=== PATIENT | female | born 1930 | race African-American/Black ===

== ENCOUNTER → 2017-05-16 | Outpatient (CLI) | payer MEDICARE, OTHER ==
[2016-05-16 11:40] VITALS: BP 151/83
[~2017-05-16] MED LIST: AMLO10TA2 PO; FLUT16SP INH; FLUT1DIS3 INH; IBUP800T19 PO; LEVO250T25 PO; LISI40TA PO; METO-239 PO; METO-247 PO; PRAV20TA2 PO; PROAIR HFA8.5 GM INH
--- NOTE | 2017-05-16 15:26 | RAD ---
APPROVED REPORT Test Type: Exercise Stress Nurse/Tech: Estela Gurrola R.N. Test Indications: DYSPNEA W/EXERTION Cardiac History: HTN Medications: See Electronic Medical Record Medical History: See Electronic Medical Record Resting ECG: SR/ST Resting Heart Rate: 100 bpm Resting Blood Pressure: 142/60mmHg Pretest Chest Pain: No chest pain Nurse/Tech Notes S1S2, LUNGS CTA Stress Symptoms Dyspnea,Fatigue POST EXERCISE Reason for Termination: Reached target heart rate Target HR: Yes Max HR: 140 bpm 104% of Maximum Predicted HR: 134 bpm Exercise duration: 3:04 min:sec, 2 Stage Exercise capacity: 6.1METs Max Blood Pressure: 173/60mmHg Blood Pressure response to exercise: Normal blood pressure response during stress. Heart Rate response to exercise: WNL Chest Pain: No. Arrhythmia: No. INTERPRETATION Stress EKG Conclusion: The resting EKG shows a sinus rhythm with nonspecific ST-T wave changes. The stress EKG shows mild further ST segment changes in the baseline abnormal leads which is not diag nostic of ischemia. Conclusion. Reasonably good exercise tolerance with an 86-year-old female walking for 3 minutes and 4 seconds. No reported chest pain with exertion. Mildly abnormal baseline EKG with further mild ST segment changes with exertion that are not diagnost ic of ischemia. Moderate to moderately low risk test. More precision could be obtained with nuclear imaging if indicated.
== END | disposition home or self-care (01) ==
LOC: NM 13:12
PROVIDERS: ATTEND Physician Assistant
DX: R06.09 Other forms of dyspnea (principal); I10 Essential (primary) hypertension; E78.00 Pure hypercholesterolemia, unspecified; Z87.891 Personal history of nicotine dependence
CPT/HCPCS: 93017

== ENCOUNTER → 2017-12-10 | Outpatient (CLI) | payer MEDICARE, OTHER ==
[2017-12-10] MEDS: REGADENOSON 0.4 MG/5 ML DISP.SYRIN. IV (10:31)
== END | disposition home or self-care (01) ==
LOC: ECHO 08:46
DX: I11.9 Hypertensive heart disease without heart failure (principal); I36.1 Nonrheumatic tricuspid (valve) insufficiency; J44.9 Chronic obstructive pulmonary disease, unspecified; E78.00 Pure hypercholesterolemia, unspecified; Z87.891 Personal history of nicotine dependence
CPT/HCPCS: 76770; 78452; 93017; 93306; 96374; 96375; 96376; A9500; J2785

== ENCOUNTER 2019-11-18 13:42 | Emergency (ER) | payer MEDICARE, OTHER ==
[~2019-11-18] VITALS: Ht 160 cm; Wt 83.2 kg
[~2019-11-18 13:42] MED LIST changes: +ALBU2.5V8 INH; -AMLO10TA2 PO; +AMLO10TA8 PO; +LISI-130 PO; -LISI40TA PO; -PROAIR HFA8.5 GM INH
--- NOTE | 2019-11-18 14:18 | EKG ---
[facility] [address] [place] [address] Test Date: 2019-11-18 Test Time: 14:09:01 Pat Name: JESSENIA ANDERSON Department: Room: Gender: F Marzipan Maker: : 1930 Requested By: JOSUE PARRA Order Number: [id number] Reading MD: Cristino Nelson Measurements Intervals [place] Rate: 90 P: -125 WV: 64 QRS: 36 QRSD: 88 T: 59 QT: 374 QTc: 462 Interpretive Statements SINUS RHYTHM T ABNORMALITY IN HIGH LATERAL LEADS ABNORMAL ECG Electronically Signed On 11-19-2019 8:05:18 CDT by Cristino Nelson
[2019-11-18 14:34] LABS: BASO # 0.1 x10^3/uL (0.0-0.2); BASO % 1 % (0-3); EOS # 0.3 x10^3/uL (0.0-0.7); EOS % 3 % (0-3); HEMATOCRIT 38.1 % (36.0-47.0); HEMOGLOBIN 12.5 g/dL (12.0-15.5); LYMPH # 1.9 x10^3/uL (1.0-4.8); LYMPH % 21 % (24-48); MEAN CORPUSCULAR HEMOGLOBIN 27 pg (25-35); MEAN CORPUSCULAR HGB CONC 33 g/dL (31-37); MEAN CORPUSCULAR VOLUME 83 fL (79-100); MONO # 1.3 x10^3/uL (0.0-1.1); MONO % 15 % (0-9); NEUT # 5.3 x10^3/uL (1.8-7.7); NEUT % 60 % (31-73); PLATELET COUNT 391 x10^3/uL (140-400); RED BLOOD COUNT 4.59 x10^6/uL (3.50-5.40); RED CELL DISTRIBUTION WIDTH 13.6 % (11.5-14.5); WHITE BLOOD COUNT 8.8 x10^3/uL (4.0-11.0)
[2019-11-18 14:42] LABS: CALCIUM 9.3 mg/dL (8.5-10.1); CREATININE 1.4 mg/dL (0.6-1.0); GFR 42.8; POTASSIUM 4.6 mmol/L (3.5-5.1)
[2019-11-18 14:44] LABS: PROTHROMBIN TIME PATIENT 13.3 SEC (11.7-14.0)
[2019-11-18 14:48] LABS: ALBUMIN 2.9 g/dL (3.4-5.0); ALBUMIN/GLOBULIN RATIO 0.7 (1.0-1.7); MAGNESIUM 2.2 mg/dL (1.8-2.4); TOTAL BILIRUBIN 0.7 mg/dL (0.2-1.0); TOTAL PROTEIN 7.2 g/dL (6.4-8.2)
[2019-11-18 14:51] LABS: INFLUENZA A PATIENT NEGATIVE (NEGATIVE); INFLUENZA B PATIENT NEGATIVE (NEGATIVE)
--- NOTE | 2019-11-18 15:37 | RAD ---
PORTABLE CHEST 1V Clinical indications: Shortness of breath. Altered level of consciousness. May 14, 2016. Findings: Bilateral perihilar interstitial pulmonary edema or bronchitis is seen. Cephalization of pulmonary flow is seen. No lung consolidation or pleural effusion or pneumothorax is evident. Heart size is mildly prominent but stable. Mediastinum is unchanged. IMPRESSION: Mild bilateral perihilar interstitial pulmonary edema or bronchitis. Cephalization of pulmonary flow which may be seen with CHF. Electronically signed by: Tyrone Cross MD (11/18/2019 3:34 PM) [id number]
--- NOTE | 2019-11-18 15:41 | RAD ---
STUDY: CT head without contrast INDICATION: Altered level of consciousness. COMPARISON: None. TECHNIQUE: Axial CT imaging through the head without the use of intravenous contrast. Sagittal and coronal reformats were obtained. One or more of the following individualized dose reduction techniques were utilized for this examination: 1. Automated exposure control 2. Adjustment of the mA and/or kV according to patient size 3. Use of iterative reconstruction technique. FINDINGS: No acute intracranial hemorrhage. No mass effect, midline shift or hydrocephalus. No CT evidence for an acute cortical infarction. Parenchymal volume loss with ex vacuo ventricular prominence. Intracranial atherosclerotic calcifications. Patchy bihemispheric subcortical/periventricular white matter low-attenuation. No acute abnormality seen to involve the orbits or scalp. Intact calvarium. IMPRESSION: 1. No acute intracranial abnormality by CT. 2. Senescent changes and white matter findings that are nonspecific but most commonly seen in the setting of chronic microvascular ischemic change. Electronically signed by: ALISIA GARCIA MD (11/18/2019 3:38 PM) [id number]
--- NOTE | 2019-11-18 16:03 | PHYS DOC ---
Past Medical History Past Medical History: COPD, High Cholesterol, Hypertension Past Surgical History: No Surgical History Smoking Status: Former Smoker Alcohol Use: None Drug Use: None General Adult EDM: Chief Complaint: SHORTNESS OF BREATH HPI: HPI: Patient is a 89 year old female with history of hypertension, dyslipidemia, COPD who presents with complaining of shortness of breath and not feeling good. Patient states that for the last 3 days she did not feel good and today had shortness of breath. Patient denies fever and chills, cough and congestion, sick contacts, recent traveling, chest pain, new focal neuro deficit. Patient son stated that she did not feel good today. Patient had O2 sat of more than 95% at room air at arrival to ER and was afebrile Review of Systems: Review of Systems: Constitutional: Denies fever or chills. [] Eyes: Denies change in visual acuity. [] HENT: Denies nasal congestion or sore throat. [] Respiratory: Reports cough and shortness of breath Cardiovascular: Denies chest pain or edema. [] GI: Denies abdominal pain, nausea, vomiting, bloody stools or diarrhea. [] : Denies dysuria. [] Musculoskeletal: Denies back pain or joint pain. [] Integument: Denies rash. [] Neurologic: Denies headache, focal weakness or sensory changes. [] Endocrine: Denies polyuria or polydipsia. [] Lymphatic: Denies swollen glands. [] Psychiatric: Denies depression or anxiety. [] Heart Score: Risk Factors: Risk Factors: DM, Current or recent (<one month) smoker, HTN, HLP, family history of CAD, obesity. Risk Scores: Score 0 - 3: 2.5% MACE over next 6 weeks - Discharge Home Score 4 - 6: 20.3% MACE over next 6 weeks - Admit for Clinical Observation Score 7 - 10: 72.7% MACE over next 6 weeks - Early Invasive Strategies Allergies: Allergies: Allergies Coded Allergies Type Severity Reaction Last Updated Verified No Known Drug Allergies 05/14/16 No Physical Exam: PE: Constitutional: Well developed, well nourished, mild distress, non-toxic appearance. [] HENT: Normocephalic, atraumatic. Eyes: PERRLA, EOMI, conjunctiva normal, no discharge. [] Neck: Normal range of motion, no tenderness, supple, no stridor. [] Cardiovascular:Heart rate regular rhythm, no murmur [] Lungs & Thorax: Bilateral breath sounds clear to auscultation [] Abdomen: Bowel sounds normal, soft, no tenderness, no masses, no pulsatile masses. [] Skin: Warm, dry, no erythema, no rash. [] Back: No tenderness, no CVA tenderness. [] Extremities: No tenderness, no cyanosis, no clubbing, ROM intact, no edema. [] Neurologic: Alert and oriented X 3, no focal deficits noted. [] Psychologic: Affect normal, judgement normal, mood normal. [] Current Patient Data: Labs: Laboratory Tests Test 11/18/19 14:15 11/18/19 14:18 White Blood Count 8.8 x10^3/uL (4.0-11.0) Red Blood Count 4.59 x10^6/uL (3.50-5.40) Hemoglobin 12.5 g/dL (12.0-15.5) Hematocrit 38.1 % (36.0-47.0) Mean Corpuscular Volume 83 fL (79-100) Mean Corpuscular Hemoglobin 27 pg (25-35) Mean Corpuscular Hemoglobin Concent 33 g/dL (31-37) Red Cell Distribution Width 13.6 % (11.5-14.5) Platelet Count 391 x10^3/uL (140-400) Neutrophils (%) (Auto) 60 % (31-73) Lymphocytes (%) (Auto) 21 % (24-48) L Monocytes (%) (Auto) 15 % (0-9) H Eosinophils (%) (Auto) 3 % (0-3) Basophils (%) (Auto) 1 % (0-3) Neutrophils # (Auto) 5.3 x10^3/uL (1.8-7.7) Lymphocytes # (Auto) 1.9 x10^3/uL (1.0-4.8) Monocytes # (Auto) 1.3 x10^3/uL (0.0-1.1) H Eosinophils # (Auto) 0.3 x10^3/uL (0.0-0.7) Basophils # (Auto) 0.1 x10^3/uL (0.0-0.2) Prothrombin Time 13.3 SEC (11.7-14.0) Prothrombin Time INR 1.1 (0.8-1.1) Sodium Level 141 mmol/L (136-145) Potassium Level 4.6 mmol/L (3.5-5.1) Chloride Level 106 mmol/L (98-107) Carbon Dioxide Level 20 mmol/L (21-32) L Anion Gap 15 (6-14) H Blood Urea Nitrogen 42 mg/dL (7-20) H Creatinine 1.4 mg/dL (0.6-1.0) H Estimated GFR (Cockcroft-Gault) 42.8 BUN/Creatinine Ratio 30 (6-20) H Glucose Level 86 mg/dL (70-99) Lactic Acid Level 1.1 mmol/L (0.4-2.0) Calcium Level 9.3 mg/dL (8.5-10.1) Magnesium Level 2.2 mg/dL (1.8-2.4) Total Bilirubin 0.7 mg/dL (0.2-1.0) Aspartate Amino Transferase (AST) 22 U/L (15-37) Alanine Aminotransferase (ALT) 21 U/L (14-59) Alkaline Phosphatase 107 U/L (46-116) Creatine Kinase 105 U/L (26-192) Troponin I Quantitative < 0.017 ng/mL (0.000-0.055) XU-Ypi-G-Type Natriuretic Peptide 336 pg/mL (0-449) Total Protein 7.2 g/dL (6.4-8.2) Albumin 2.9 g/dL (3.4-5.0) L Albumin/Globulin Ratio 0.7 (1.0-1.7) L Influenza Type A Antigen Negative (NEGATIVE) Influenza Type B Antigen Negative (NEGATIVE) Laboratory Tests 11/18/19 14:15 Laboratory Tests 11/18/19 14:15 Vital Signs: Vital Signs Date Time Temp Pulse Resp B/P (MAP) Pulse Ox O2 Delivery O2 Flow Rate FiO2 11/18/19 13:55 99.2 90 20 170/76 (107) 94 Room Air 99.2 EKG: EKG: EKG interpreted by me. EKG at 1409 showed sinus rhythm at rate of 90 with multiple artifact without acute ST and T wave elevation. Radiology/Procedures: Radiology/Procedures: [facility] [address] [place] [address] IMAGING REPORT Signed PATIENT: JESSENIA ANDERSON ACCOUNT: [id number] : 1930 LOCATION: ER AGE: 89 SEX: F EXAM STATUS: PRE ER ORD. PHYSICIAN: JOSUE PARRA MD REASON: Shortness of breath, altered level of consciousness PROCEDURE: PORTABLE CHEST 1V PORTABLE CHEST 1V Clinical indications: Shortness of breath. Altered level of consciousness. May 14, 2016. Findings: Bilateral perihilar interstitial pulmonary edema or bronchitis is seen. Cephalization of pulmonary flow is seen. No lung consolidation or pleural effusion or pneumothorax is evident. Heart size is mildly prominent but stable. Mediastinum is unchanged. IMPRESSION: Mild bilateral perihilar interstitial pulmonary edema or bronchitis. Cephalization of pulmonary flow which may be seen with CHF. Electronically signed by: Zeus Cross MD (11/18/2019 3:34 PM) [id number] DICTATED and SIGNED BY: ZEUS CROSS MD DATE: 11/18/19 1534 [facility] [address] [place] [address] IMAGING REPORT Signed PATIENT: JESSENIA ANDERSON ACCOUNT: [id number] : 1930 LOCATION: ER AGE: 89 SEX: F EXAM STATUS: PRE ER ORD. PHYSICIAN: JOSUE PARRA MD REASON: ALOC PROCEDURE: CT HEAD WO CONTRAST STUDY: CT head without contrast INDICATION: Altered level of consciousness. COMPARISON: None. TECHNIQUE: Axial CT imaging through the head without the use of intravenous contrast. Sagittal and coronal reformats were obtained. One or more of the following individualized dose reduction techniques were utilized for this examination: 1. Automated exposure control 2. Adjustment of the mA and/or kV according to patient size 3. Use of iterative reconstruction technique. FINDINGS: No acute intracranial hemorrhage. No mass effect, midline shift or hydrocephalus. No CT evidence for an acute cortical infarction. Parenchymal volume loss with ex vacuo ventricular prominence. Intracranial atherosclerotic calcifications. Patchy bihemispheric subcortical/periventricular white matter low-attenuation. No acute abnormality seen to involve the orbits or scalp. Intact calvarium. IMPRESSION: 1. No acute intracranial abnormality by CT. 2. Senescent changes and white matter findings that are nonspecific but most commonly seen in the setting of chronic microvascular ischemic change. Electronically signed by: ALISIA GARCIA MD (11/18/2019 3:38 PM) [id number] DICTATED and SIGNED BY: ALISIA GARCIA MD DATE: 11/18/19 1538 Course & Med Decision Making: Course & Med Decision Making Pertinent Labs and Imaging studies reviewed. (See chart for details) Additional patient nurse with 89-year-old female patient who did not feel good for the last few days and complaining of shortness of breath today. Patient did not have fever and chills, hypotension, leukocytosis, tachycardia. X-ray showed questionable viral pneumonia. Patient is suspected for COVID 19 infection. Patient is a stable to discharge home at this time. Patient was advised to follow-up with outpatient test for rodriguez infection. I've spoken with the patient and/or caregivers. I've explained the patient's condition, diagnosis and treatment plan based on information available to me at this time. I've answered the patient's and/or caregivers questions and addressed any concerns. The patient and/or caregivers have a good understanding the patient's diagnosis, condition and treatment plan as can be expected at this point. Vital signs have been stabilized. The patient's condition is stable for discharge from the emergency department. The patient will pursue further outpatient evaluation with her primary care provider or other designated consulting physician as outlined in the discharge instructions. Patient and/or caregivers are agreeable to this plan of care and follow-up instructions have been explained in detail. The patient and/or caregivers have received these instructions in written format and expressed understanding of these discharge instructions. The patient and her caregivers are aware that if any significant change in condition or worsening of symptoms should prompt him to immediately return to this of the closest emergency department. If an emergent department is not readily available I would encourage him to call 911. Anjum Disclaimer: Anjum Disclaimer: This electronic medical record was generated, in whole or in part, using a voice recognition dictation system. Departure Departure Impression: Primary Impression: Viral respiratory illness Additional Impression: Suspected 2019 novel coronavirus infection Disposition: HOME, SELF-CARE (At 16 5) Condition: STABLE Referrals: DESIRE KNUTSON MD (PCP) Patient Instructions: Viral Infections Additional Instructions: You have a viral syndrome which may include symptoms like muscle aches, fevers, chills, runny nose, cough, sneezing, sore throat, nausea, vomiting, or diarrhea. One of the potential viruses that you may have is SARS-CoV-2, the virus that causes COVID-19, also known as the Coronavirus. You are just as likely to have a different viral infection such as the common cold, flu, etc. Most patients with the Coronavirus have mild symptoms and recover on their own. Resting, staying hydrated, and sleep based on known cases can be helpful. As of todays visit, you are well enough to go home and treat your symptoms with oral fluids and over the counter medications. Coronavirus testing is not performed on most people with mild symptoms who are being discharged from the emergency department. If Coronavirus testing was performed today the results will not be available for possibly up to 3-4 days. If your result is positive you will be contacted. Please follow the following precautions at home: 1) Stay home except to get medical care. 2) As advised by the CDC, we recommend that you stay in your home and minimize contact with other people. We do not want you to spread the infection. 3) Those who are older or have significant medical issues may have more severe symptoms from this infection. We recommend self-isolation FOR AT LEAST 7 DAYS after your 1st day of symptoms. AFTER you feel better please wait AT LEAST ANOTH ER WEEK before returning to regular activities and being around other people. 4) IF you become sicker and have difficulty breathing, chest pain, are unable to eat/drink, severe vomiting, diarrhea, or weakness you may need to return to the Emergency Department. 5) You should restrict activities outside of your home, except for getting medical care. DO NOT go to work, school, or public areas. Avoid using public transportation, ride sharing, or taxis. 6) Separate yourself from other people in your home. You should use a separate bathroom if possible. 7) Avoid sharing personal household items such as dishes, cups, eating utensils, towels, etc. 8) Clean all high touch surfaces every day (door knobs, counter tops, etc). Use a household cleaning spray or wipe per label instructions. 9) Clean your hands often. Wash your hands with soap and water for at least 20 seconds. 10) Cover your mouth and nose when you cough or sneeze. 11) Throw used tissues in the trash and immediately wash your hands. For additional resources please visit the CDC website or the [place] [facility] ([phone]), you may also call 311 for further information. Thank you for visiting [facility] We appreciate you trusting us with your care. If any additional problems come up don't hesitate to return to visit us. Please follow up with your primary care provider so they can plan additional care if needed and know about the problem that you had. If symptoms worsen come back to the Emergency Department. Any concerning symptoms that start such as chest pain, shortness of air, weakness or numbness on one side of the body, running high fevers or any other concerning symptoms return to the ER. Scripts [COVID 19 test] No Conflict Check Prov: JOSUE PARRA MD 11/18/19 Critical Care Time Critical care time was 60 minutes exclusive of procedures. COVID-19 Assessment: COVID-19 Patient Risks: Age 65 or older: Yes Sign of co-morbidity: Yes Exp to person + for COVID: No Exp to PUI: No Travel from affected area: No Lower respiratory symptoms: Yes Fever: No PPE Use: Full PPE with N95 mask or PAPR: Yes JOSUE PARRA MD Nov 18, 2019 16:02
[2019-11-18 16:28] LABS: BILIRUBIN,URINE NEGATIVE (NEG); CLARITY,URINE CLEAR; COLOR,URINE YELLOW; NITRITE,URINE NEGATIVE (NEG); PROTEIN,URINE NEGATIVE (NEG-TRACE)
[2019-11-18 16:35] LABS: BACTERIA,URINE 0 /HPF (0-FEW); RBC,URINE 0 /HPF (0-2); SQUAMOUS EPITHELIAL CELL,UR OCC /LPF; WBC,URINE 0 /HPF (0-4)
[2019-11-18] MEDS ORDERED: COVID 19 test (17:01)
[2019-11-18 17:45] VITALS: BP 161/61
== END 2019-11-18 19:25 | disposition home or self-care (01) ==
LOC: ER 13:42
DX: Z20.828 Contact with and (suspected) exposure to other viral communicable diseases (principal); B34.8 Other viral infections of unspecified site; R06.02 Shortness of breath; I10 Essential (primary) hypertension; E78.00 Pure hypercholesterolemia, unspecified; J44.9 Chronic obstructive pulmonary disease, unspecified; Z87.891 Personal history of nicotine dependence
CPT/HCPCS: 36415; 70450; 71045; 80053; 81001; 82550; 83605; 83735; 83880; 84484; 85025; 85610; 87804; 93005; 99285-25